=== PATIENT | male | born 1995 | race Caucasian/White ===

== ENCOUNTER 2017-03-24 17:54 | Emergency (ER) | payer OTHER ==
[2017-03-24 18:10] VITALS: O2SAT 98
--- NOTE | 2017-03-24 19:04 | EDPHY ---
H & P Stated Complaint: skateboarding fall inj l wrist/abrasions to elbow Time Seen by Provider: 03/24/17 19:04 HPI/ROS: HPI: This is a 21-year-old male who presents with Chief Complaint: Left wrist injury Location: Left wrist Quality: Injury Duration: 3-5 hours prior to arrival Signs and Symptoms: No bleeding, no radiation, no numbness, no weakness, no tingling, no incontinence, no decreased range of motion Timing: Sudden Severity: 01/22 Context: Patient reports that he was skateboarding; traveling at a significant speed downhill, when a car was riding next home and he turned his head, losing his balance and accidentally falling off of his skateboard. He reports that he did a tuck and roll move; and somehow injured his left wrist. He felt immediate pain in the area; it was constant and severe; nonradiating in nature. He is right-hand dominant. He reports a history of left wrist fracture in the past; treated non operatively. He complains of abrasions to his left shoulder region and left elbow. He denies hitting his head/neck pain/LOC. He reports that his tetanus is up-to-date. He drove himself to the emergency room. Modifying Factors: Direct pressure Comment: ROS: see HPI Constitutional: No fever, no chills, no weight loss Eyes: No blurred vision Respiratory: No shortness of breath, no cough Cardiovascular: No chest pain Gastrointestinal: No nausea, no vomiting no diarrhea Genitourinary: No dysuria Extremities: No myalgias Neurologic: No weakness, no numbness Skin: No rashes Hematologic: No bruising, no bleeding MEDICAL/SURGICAL/SOCIAL HISTORY: Medical history: Generally healthy. Does not take any regular medications. Surgical history: Left wrist surgery Social history: employed CONSTITUTIONAL: Well-developed well-nourished polite young adult white male, awake and alert, no obvious distress HEENT: Atraumatic and normocephalic, PERRL, EOMI. Tympanic membranes clear. Oropharynx clear, no exudate and moist pink mucosa. Airway patent. No lymphadenopathy. No meningismus. Cardiovascular: Normal S1/S2, regular rate, regular rhythm, without murmur rub or gallop. PULMONARY/CHEST: Symmetrical and nontender. Clear to auscultation bilaterally. Good air movement. No accessory muscle usage. ABDOMEN: Soft, nondistended, nontender, no rebound, no guarding, no peritoneal signs, no masses or organomegaly. No CVAT. EXTREMITIES: 2/2 radial pulses, abrasions noted over left shoulder area/the left elbow. Left wrist: tenderness to palpation over the radial styloid head with mild swelling. + scaphoid tenderness. All DIP/PIP joints have full flexion and extension. Left wrist extension to 60, flexion to 75, radial deviation is 10, ulnar deviation to 10. Light touch sensation intact. Good capillary refill. no deformities, no clubbing, no cyanosis or edema. Left elbow has full extension and good flexion. Left shoulder exam is benign with full range of motion. NEUROLOGICAL: no focal neuro deficits. GCS 15. SKIN: Warm and dry, no erythema. no rash. Good capillary refill. Source: Patient Exam Limitations: No limitations - Personal History Current Tetanus/Diphtheria Vaccine: Yes - Medical/Surgical History Hx Asthma: No Hx Chronic Respiratory Disease: No Hx Diabetes: No Hx Cardiac Disease: No Hx Renal Disease: No Hx Cirrhosis: No Hx Alcoholism: No Hx HIV/AIDS: No Hx Splenectomy or Spleen Trauma: No Other PMH: denies - Social History Smoking Status: Never smoked Constitutional: Initial Vital Signs Temperature (C) 37 C 03/24/17 18:08 Heart Rate 88 03/24/17 18:08 Respiratory Rate 18 03/24/17 18:08 Blood Pressure 115/68 03/24/17 18:08 O2 Sat (%) 98 03/24/17 18:08 O2 Delivery Mode Room Air Allergies/Adverse Reactions: No Known Allergies Allergy (Unverified 03/24/17 18:07) Home Medications: Medication Instructions Recorded oxyCODONE/APAP 5/325 [Percocet 1 - 2 tab PO Q4H PRN #12 tab 03/24/17 5/325 (*)] Medical Decision Making - Diagnostics Imaging Results: Imaging Impressions Wrist X-Ray 03/24/17 18:10 Impression: 1. Nondisplaced scaphoid waist fracture. 2. Equivocal nondisplaced palmar distal radial fracture. Procedures: Procedure: Splint placement. A left thumb spica/volar splint was applied by the emergency vehicle glass technician. After application of the splint I returned and re-examined the patient. The splint was adequately immobilizing the joint and distal to the splint the patient's circulation and sensation was intact. ED Course/Re-evaluation: Tetanus up-to-date. No signs of neurovascular compromise/tenting of skin/compartment syndrome/ extremities and joints examined above and below area of concern and are neurovascularly intact. Let applied to Abrasions and a were cleaned with mild soap and water; bacitracin applied. X-ray my read shows nondisplaced scaphoid and distal radial fracture. Given p.o. Percocet with adequate relief of pain. Placed in combination volar and thumb spica splint. Advised rice and Ortho follow-up Differential Diagnosis: Differential diagnosis includes fracture, nerve injury, tendon injury, contusion , abrasions. - Data Points Medications Given: Discontinued Medications Oxycodone/Acetaminophen (Percocet 5/325) 1 tab PO EDNOW ONE Stop: 03/24/17 19:23 Last Admin: 03/24/17 19:36 Dose: 1 tab Tetracaine/Epinephrine/Lidocaine (Let Gel Topical) 2 ea TP EDNOW ONE Stop: 03/24/17 19:35 Last Admin: 03/24/17 19:36 Dose: 2 ea Departure - Departure Disposition: Home, Routine, Self-Care Clinical Impression: Abrasion of left shoulder, initial encounter Fracture of scaphoid of left wrist Qualifiers: Encounter type: initial encounter Scaphoid bone location: unspecified portion of scaphoid Fracture type: closed Fracture alignment: nondisplaced Qualified Code(s): S62.002A - Unspecified fracture of navicular [scaphoid] bone of left wrist, initial encounter for closed fracture Distal radius fracture, left Qualifiers: Encounter type: initial encounter Fracture type: closed Fracture morphology: unspecified fracture morphology Qualified Code(s): S52.502A - Unspecified fracture of the lower end of left radius, initial encounter for closed fracture Condition: Good Instructions: Wrist Fracture in Adults (ED), Scaphoid Fracture (ED) Additional Instructions: Keep the splint in place and dry until seen by Hand surgery. Take ibuprofen 600-800 mg every 6-8 hours with food as needed for pain and inflammation. Take Percocet as needed for severe or breakthrough pain. Apply ice for 30 minutes at a time; 2-3 times per day for the next 1-2 days. Follow up with Orthopedics in -5 days at which time they will evaluate and recommend with you if conservative management versus surgery is indicated. Clean her abrasions daily with mild soap and water; pat dry; and then apply topical antibiotic ointment daily until fully healed. Referrals: Vu Beckwith MD [Medical Doctor] - As per Instructions Stand Alone Forms: School Excuse Prescriptions: oxyCODONE/APAP 5/325 [Percocet 5/325 (*)] 1 - 2 tab PO Q4H PRN #12 tab PRN Reason: Pain, Severe
[2017-03-24] MEDS ORDERED: OXYCODONE/APAP 5/325 TAB PO ONE (19:22)
[2017-03-24] MEDS ORDERED: LET GEL TOPICAL 1 EA SYR TP ONE ×2 (19:32→19:34)
[2017-03-24 20:00] VITALS: BP 106/62; PULSE 59; RESP 14; TEMP 98.2
== END 2017-03-24 20:00 | disposition home or self-care (01) ==
DX: S62.002A Unspecified fracture of navicular [scaphoid] bone of left wrist, initial encounter for closed fracture (principal); S52.502A Unspecified fracture of the lower end of left radius, initial encounter for closed fracture; S40.212A Abrasion of left shoulder, initial encounter; V00.131A Fall from skateboard, initial encounter; Y99.8 Other external cause status; Y93.51 Activity, roller skating (inline) and skateboarding

== ENCOUNTER 2017-03-28 16:54 | Emergency (ER) | payer OTHER ==
[2017-03-28 16:59] VITALS: BP 107/73; PULSE 78; RESP 18; TEMP 98.6; O2SAT 98
--- NOTE | 2017-03-28 17:07 | EDPHY ---
H & P Time Seen by Provider: 03/28/17 17:00 HPI/ROS: CHIEF COMPLAINT: Left wrist pain HISTORY OF PRESENT ILLNESS: Seen on March 24 after a fall from a skateboard diagnosed with a scaphoid fracture and placed in a splint. Given 12 Percocet. Returns with left wrist pain and out of pain medication. He did see Dr. beckwith from Hand surgery and is scheduled for surgery this coming week on . REVIEW OF SYSTEMS: No new trauma no numbness or weakness distally. PAST MEDICAL HISTORY: Generally healthy, negative for diabetes General Appearance: Alert and conversant, cooperative. Left wrist splint taken down and skin visually inspected by myself without breakdown. Normal motor sensory and capillary refill distally in all fingers. Splint reapplied and wrapped. Emergency Department course/MDM: Percocet 11. Follow-up with Dr. beckwith this week. Smoking Status: Never smoked Constitutional: Initial Vital Signs Temperature (C) 37 C 03/28/17 16:56 Heart Rate 78 03/28/17 16:56 Respiratory Rate 18 03/28/17 16:56 Blood Pressure 107/73 03/28/17 16:56 O2 Sat (%) 98 03/28/17 16:56 O2 Delivery Mode Room Air Allergies/Adverse Reactions: No Known Allergies Allergy (Verified 03/28/17 16:56) Home Medications: Medication Instructions Recorded oxyCODONE/APAP 5/325 [Percocet] 1 tab PO Q4-6PRN PRN #11 tab 03/28/17 MDM/Departure - Depart Disposition: Home, Routine, Self-Care Clinical Impression: Fracture of scaphoid of left wrist Qualifiers: Encounter type: subsequent encounter Scaphoid bone location: unspecified portion of scaphoid Fracture type: closed Condition: Good Instructions: Scaphoid Fracture (ED) Additional Instructions: Surgery this as planned. Call Dr. beckwith's office on Thursday if you require more pain medication Prescriptions: oxyCODONE/APAP 5/325 [Percocet] 1 tab PO Q4-6PRN PRN #11 tab PRN Reason: Pain Referrals: [facility],UNKNOWN [Other] - As per Instructions Vu Beckwith MD [Medical Doctor] - As per Instructions
[2017-03-28] MEDS ORDERED: OXYCODONE/APAP 5/325MG PREPACK#4 BTL TAKEHOME ONE (18:05)
== END 2017-03-28 17:18 | disposition home or self-care (01) ==
DX: S62.002D Unspecified fracture of navicular [scaphoid] bone of left wrist, subsequent encounter for fracture with routine healing (principal); V00.131D Fall from skateboard, subsequent encounter

== ENCOUNTER 2017-09-13 09:29 | Emergency (ER) | payer OTHER ==
--- NOTE | 2017-09-13 09:37 | EDPHY ---
HPI/HX/ROS/PE/MDM Narrative: CHIEF COMPLAINT: Sore throat HPI: This patient is a healthy 21 year old male complaining of sore throat. His symptoms started two days ago while he was on a camping trip [place] spring. He states it is painful to swallow. He is able to drink water. He has associated pain in his mouth. He also complains of discomfort in his ears with a "fluid" sensation. He denies fever, but reports he had night sweats last night. No chest pain, difficulty breathing, vomiting, diarrhea, urinary complaints, or other associated symptoms. REVIEW OF SYSTEMS: Aside from elements discussed in the HPI, a comprehensive 10-point review of systems was reviewed and is negative. PMH: Orthopedic surgery, oral surgery. SOCIAL HISTORY: Student at [employer]. Nonsmoker. PHYSICAL EXAM: General:Patient is alert, in no acute distress. Non-toxic appearing. ENT:Eyes are normal to inspection. Mild bilateral tonsillar hypertrophy with mild exudates bilaterally. Ears normal to inspection bilaterally. Neck: Normal inspection. Full range of motion. Respiratory:No respiratory distress. Breath sounds normal bilaterally. Cardiovascular: Regular rate and rhythm. Strong peripheral pulses. Normal cap refill. Abdomen:The abdomen is nontender to palpation. Skin: Normal color. No rash. Warm and dry. Extremities: Normal appearance. Full range of motion. Neuro: Oriented x3. Normal motor function. Normal sensory function. ED Course: 21 y/o male presets with two day history of sore throat. Bilateral mild tonsillar hypertrophy with mild exudates present on exam. Plan for strep swab. Strep screen negative. 10:03 Reassessed patient. HR 120. Patient states he may be dehydrated due to his [place] the [place]. Plan to administer 1L IV NS. Plan for labs including CBC, mono test. Plan to administer 10mg IV Decadron and 30mg IV Toradol for symptom relief. 11:00 - Patient sleeping, HR 93, feels much better. [place] negative. WBC elevated but no signs of meningitis or abscess on exam. MDM: I see no evidence for epiglottitis, GOVERNMENT RELATIONS MANAGER, deep space infection or aspiration. - Data Points Laboratory Results: Laboratory Results 09/13/17 10:00 09/13/17 09/13/17 09/13/17 Unknown 10:25 10:00 WBC 15.89 10^3/uL H 10^3/uL (3.80-9.50) RBC 5.20 10^6/uL 10^6/uL (4.40-6.38) Hgb 16.0 g/dL g/dL (13.7-17.5) Hct 46.9 % % (40.0-51.0) MCV 90.2 fL fL (81.5-99.8) MCH 30.8 pg pg (27.9-34.1) MCHC 34.1 g/dL g/dL (32.4-36.7) RDW 13.1 % % (11.5-15.2) Plt Count 254 10^3/uL 10^3/uL (150-400) MPV 9.1 fL fL (8.7-11.7) Neut % (Auto) Not Reported Lymph % (Auto) Not Reported [place] % (Auto) Not Reported Eos % (Auto) Not Reported Baso % (Auto) Not Reported Nucleat RBC Rel Count 0.0 % % (0.0-0.2) Absolute Neuts (auto) Not Reported Absolute Lymphs (auto) Not Reported Absolute Monos (auto) Not Reported Absolute Eos (auto) Not Reported Absolute Basos (auto) Not Reported Absolute Nucleated RBC 0.00 10^3/uL 10^3/uL (0-0.01) Immature Gran % Not Reported Seg Neutrophils % 42 % % Band Neutrophils % 3 % % Lymphocytes % 46 % % Monocytes % 9 % % Immature Gran # Not Reported Absolute Seg Neuts 6.67 10^/uL H 10^/uL (1.70-6.50) Absolute Band Neuts 0.48 10^3/uL 10^3/uL (0.00-0.70) Absolute Lymphocytes 7.31 10^3/uL H 10^3/uL (1.00-3.00) Absolute Monocytes 1.43 10^3/uL H 10^3/uL (0.30-0.80) RBC/WBC/PLT Morphology NORMAL (NORMAL) Atypical Lymphocytes 2+ H Platelet Estimate ADEQUATE (ADEQ) Smear Review By Pending Monoscreen NEGATIVE (NEGATIVE) Group A Strep Screen Group A Strep DNA Pending 09/13/17 09:30 WBC RBC Hgb Hct MCV MCH MCHC RDW Plt Count MPV Neut % (Auto) Lymph % (Auto) [place] % (Auto) Eos % (Auto) Baso % (Auto) Nucleat RBC Rel Count Absolute Neuts (auto) Absolute Lymphs (auto) Absolute Monos (auto) Absolute Eos (auto) Absolute Basos (auto) Absolute Nucleated RBC Immature Gran % Seg Neutrophils % Band Neutrophils % Lymphocytes % Monocytes % Immature Gran # Absolute Seg Neuts Absolute Band Neuts Absolute Lymphocytes Absolute Monocytes RBC/WBC/PLT Morphology Atypical Lymphocytes Platelet Estimate Smear Review By Monoscreen Group A Strep Screen NEGATIVE (NEGATIVE) Group A Strep DNA Medications Given: Discontinued Medications Dexamethasone (Decadron Injection) 10 mg PO EDNOW ONE Stop: 09/13/17 10:01 Last Admin: 09/13/17 10:57 Dose: Not Given Dexamethasone (Decadron Injection) 10 mg IVP EDNOW ONE Stop: 09/13/17 10:04 Last Admin: 09/13/17 10:18 Dose: 10 mg Sodium Chloride (Ns) 1,000 mls @ 0 mls/hr IV EDNOW ONE; Wide Open PRN Reason: Protocol Stop: 09/13/17 10:04 Last Admin: 09/13/17 10:14 Dose: 1,000 mls Ketorolac Tromethamine (Toradol) 30 mg IVP EDNOW ONE Stop: 09/13/17 10:04 Last Admin: 09/13/17 10:15 Dose: 30 mg General Time Seen by Provider: 09/13/17 09:36 Initial Vital Signs: Initial Vital Signs Temperature (C) 37.1 C 09/13/17 09:31 Heart Rate 120 H 09/13/17 09:31 Respiratory Rate 20 09/13/17 09:31 Blood Pressure 122/103 H 09/13/17 09:31 O2 Sat (%) 96 09/13/17 09:31 O2 Delivery Mode Room Air Allergies/Adverse Reactions: No Known Allergies Allergy (Verified 09/13/17 09:31) Home Medications: Medication Instructions Recorded Hydrocodone/APAP 5/325 [[place] 1 - 2 tab PO Q6H PRN #6 tab 09/13/17 5/325 (*)] Departure - Departure Disposition: Home, Routine, Self-Care Clinical Impression: Acute pharyngitis Condition: Good Instructions: Pharyngitis (ED) Additional Instructions: 1. Follow up with your primary care provider in 2-3 days. 2. Stay well hydrated. 3. Take Vicodin as prescribed as needed for severe pain. Take ibuprofen or Tylenol as directed below as needed for pain and fever. Do not take Vicodin with Tylenol as both these medications contain acetaminophen. 4. Return to the emergency department for fever, worsening throat pain, inability to swallow liquids, difficulty breathing, or other worsening of condition. Adult Pain & Fever Control: We recommend Acetaminophen (Tylenol) and Ibuprofen (Motrin,Advil) for pain and fever control. When fever is high or pain severe, both drugs can be used at the same time, but at different intervals. Please note the time differences. Your dose is: Acetaminophen 650mg every 4 to 6 hours Ibuprofen 600mg every 6-8 hours with food Note: do not take Acetaminophen with Hydrocodone (Vicodin, Lortab) or Oxycodone (Percocet). These medications also contain Acetaminophen. No more than 3000mg of Acetaminophen should be taken in 24 hours (for an adult). Referrals: KHOI Martel,. [Primary Care Provider] - As per Instructions Prescriptions: Hydrocodone/APAP 5/325 [[place] 5/325 (*)] 1 - 2 tab PO Q6H PRN #6 tab PRN Reason: Pain, Severe Report Scribed for: Filiberto Mccormack Report Scribed by: Anabel Yanez Date of Report: 09/13/17 Time of Report: 09:37 Physician Review and Approval Statement: Portions of this note were transcribed by an ED scribe. I personally performed the history, physical exam, and medical decision making; and confirm the accuracy of the information in the transcribed note.
[2017-09-13] MEDS ORDERED: DEXAMETHASONE 10 MG/ML VIAL PO ONE (10:00)
[2017-09-13] MEDS ORDERED: NS 1,000 ML IV ONE (10:03)
[2017-09-13] MEDS ORDERED: DEXAMETHASONE 10 MG/ML VIAL IVP ONE (10:03)
[2017-09-13] MEDS ORDERED: KETOROLAC 30 MG/1 ML SDV IVP ONE (10:03)
[2017-09-13 10:17] LABS: PLATELET COUNT 254 10^3/uL (150-400)
[2017-09-13 11:31] VITALS: BP 126/73; PULSE 81; RESP 16; TEMP 98.1; O2SAT 96
== END 2017-09-13 11:31 | disposition home or self-care (01) ==
DX: J02.9 Acute pharyngitis, unspecified (principal); E86.9 Volume depletion, unspecified
CPT/HCPCS: 96374; J1100; J1885